=== PATIENT | female | born 1945 | race Caucasian/White ===

== ENCOUNTER 2018-03-07 06:25 | Inpatient (IN) | payer OTHER ==
[~2018-03-07] VITALS: Ht 147.3 cm; Wt 78.9 kg
[2018-03-07 06:25] VITALS: BP 103/57
[~2018-03-07 06:25] MED LIST: ACET-787 PO; ASPI81CT89 PO; DULO60EC PO; LEVO0.124 PO; LINA5TAB PO; METO25TE2 PO; PRAV80TA PO; VALS80TA2 PO
--- NOTE | 2018-03-07 06:25 | NUR ---
PT AMBULATED TO ER BED 03
--- NOTE | 2018-03-07 06:36 | NUR ---
PT BIBA FOR C/O LEFT HIP PAIN X THIS MORNING. PT STATES IT AWOKE HER OUT OF HER SLEEP. PT REPORTS HX OF MULTIPLE HIP AND BACK SURGERIES. NO OBVIOUS DEFORMITY OR TRAUMA NOTED TO LEFT HIP OR LEG. PT IS UNABLE TO MOVE LEFT LEG. CMS INTACT. PT PLACED INTO BED, PENDING MD VILLASENOR.
--- NOTE | 2018-03-07 07:22 | NUR ---
REPORT TO AUTUMN CROWDER FOR TRANSFER OF CARE.
[2018-03-07] MEDS ORDERED: NACL 0.9% 1,000 ML IV SCH (07:36)
[2018-03-07] MEDS ORDERED: NACL 0.9% 1,000 ML IV ONE (07:36)
[2018-03-07] MEDS ORDERED: KETOROLAC 30 MG/ML VIAL IVP ONE (07:40)
[2018-03-07] MEDS ORDERED: ONDANSETRON 4 MG/2 ML VIAL IVP ONE (07:40)
[2018-03-07] MEDS ORDERED: MORPHINE SULFATE 4 MG/ML SYR IVP ONE (07:40)
--- NOTE | 2018-03-07 07:45 | NUR ---
PT TAKEN OFF THE UNIT VIA GURNEY FOR CT OF THE ABDOMEN
[2018-03-07 08:17] LABS: BASOPHILS # (AUTO) 0.1 K/uL (0.00-0.22); BASOPHILS % (AUTO) 1.1 % (0.0-2.0); EOSINOPHILS # (AUTO) 0.5 K/uL (0-0.4); EOSINOPHILS % (AUTO) 4.9 % (0.0-4.0); HEMATOCRIT 36.5 % (36-48); HEMOGLOBIN 11.5 g/dL (12.0-16.0); LYMPHOCYTES # (AUTO) 2.1 K/uL (2.5-16.5); LYMPHOCYTES % (AUTO) 21.6 % (20.5-51.1); MEAN CORPUSCULAR HEMOGLOBIN 26 pg (27-31); MEAN CORPUSCULAR HGB CONC 32 g/dL (33-37); MEAN CORPUSCULAR VOLUME 80.7 fL (80-94); MONOCYTES # (AUTO) 0.4 K/uL (0.8-1.0); MONOCYTES % (AUTO) 4.4 % (1.7-9.3); NEUTROPHILS # (AUTO) 6.6 K/uL (1.8-7.7); PLATELET COUNT (AUTO) 313 K/uL (140-450); RED BLOOD CELL COUNT(AUTO) 4.52 MIL/uL (4.20-5.40); RED CELL DISTRIBUTION WIDTH 18.2 % (11.6-13.7); WHITE BLOOD COUNT (AUTO) 9.8 K/uL (4.8-10.8)
[2018-03-07 08:28] LABS: ANION GAP 10.3 (8-16); CARBON DIOXIDE 30.7 mmol/L (21-32); CHLORIDE 106 mmol/L (98-107); CREATININE 1.1 mg/dL (0.6-1.3); GLUCOSE 114 mg/dL (74-106); PROTHROMBIN TIME 10.1 secs (10.8-13.4); SODIUM SERUM 143 mmol/L (136-145); UREA NITROGEN, BLOOD 14 mg/dL (7-18)
[2018-03-07 08:29] LABS: GFR ARICAN-AMERICAN 63 mL/min (>90)
[2018-03-07 08:30] LABS: ACETONE, SERUM NEGATIVE (NEGATIVE)
[2018-03-07 08:36] LABS: ALBUMIN 3.1 g/dL (3.4-5.0); AMYLASE 38 U/L (25-115); ASPARTATE AMINOTRANSFERASE 18 U/L (15-37); LIPASE 110 U/L (73-393); MAGNESIUM 2.2 mg/dL (1.8-2.4); TOTAL BILIRUBIN 0.3 mg/dL (0.0-1.0)
[2018-03-07 08:50] LABS: URIC ACID 7.2 mg/dL (2.6-7.2)
--- NOTE | 2018-03-07 09:35 | NUR ---
aao pt "feels a little better" post medication
[2018-03-07] MEDS ORDERED: ACETAMINOPHEN 325 MG TAB PO PRN (10:40)
[2018-03-07] MEDS ORDERED: ONDANSETRON 4 MG/2 ML VIAL IVP PRN (10:40)
--- NOTE | 2018-03-07 10:55 | NUR ---
admitting resident evaluating aao pt with daughter at bedside
--- NOTE | 2018-03-07 10:59 | NUR ---
daughter by bedside and states she will be bringing the rest of home medications
[2018-03-07 11:37] LABS: CHOL/HDL RATIO 4.6 (1-4.5); FREE T4 (FREE THYROXINE) 1.36 ng/dL (0.76-1.46); MAGNESIUM 2.2 mg/dL (1.8-2.4); PHOSPHORUS 3.2 mg/dL (2.5-4.9); THYROID STIMULATING HORMONE 0.07 uIU/mL (0.34-3.74)
--- NOTE | 2018-03-07 11:55 | NUR ---
Patient will be admitted to care of Dr Saldivar. Admited to tele. Will go to room 107a. Belongings list completed. Report to AUTUMN Jones.
[2018-03-07] MEDS ORDERED: DEXTROSE 50% 50 ML SYR IVP PRN (12:00)
--- NOTE | 2018-03-07 12:05 | NUR ---
PT BROUGHT UP FROM ER IN [facility], PT AWAKE ALERT, REPORT RECEIVED FROM LAKESHA RN, RESP EVEN UNLABORED, PT STATES SHE CAN'T AMBULATE D/T PAIN, LEFT LEG PAIN RADIATES FROM LEFT LWER BACK TO HIP TO LEFT LWER LEG, DECREASED MOVEMENT DUE TO PAIN, DECREASED SENSATION SECONDARY TO NEUROPATHY PER PT, GOOD PEDAL PULSE, PT ORIENTED TO ROOM AND FLOOR, PLAN OF CARE REVIEWED, PT C/O 02/05 PAIN WILL MEDICATE PER ORDER.
[2018-03-07 12:08] VITALS: BP 108/55
[2018-03-07 12:29] LABS: APPEARANCE,URINE CLEAR (CLEAR); BILIRUBIN,URINE NEGATIVE (NEGATIVE); BLOOD, URINE NEGATIVE (NEGATIVE); COLOR,URINE YELLOW (YELLOW); LEUKOCYTE ESTERASE ,URINE NEGATIVE (NEGATIVE); NITRITE, URINE NEGATIVE (NEGATIVE); UGLUCOSE NEGATIVE (NEGATIVE)
[2018-03-07 12:35] LABS: BARBITURATE, URINE POS. ng/ml (NEG <=200); BENZODIAZEPINE, URINE NEG. ng/mL (NEG <=200); CANNABINOID, URINE NEG. ng/mL (NEG <=50); COCAINE, URINE NEG. ng/mL (NEG <=300); OPIATE, URINE NEG. ng/mL (NEG <=2000); PHENCYCLIDINE SCREEN,URINE NEG. ng/mL (NEG <=25)
[2018-03-07] MEDS: NACL 0.9% 1,000 ML IV SCH (12:51)
[2018-03-07] MEDS: HYDROcodone/APAP 7.5/325 MG 1 TAB PO PRN ×2 (13:06→20:53)
--- NOTE | 2018-03-07 14:45 | NUR ---
PT STARTED HYPERVENTILATING AND MOANING AND SHAKING C/O PAIN DURING ULTRASOUND OF LEFT LE, PT RESPONDS AND STATES SHE IS IN PAIN, VITALS WNL, BS WNL, DR BREWSTER AT BEDSIDE, RT AT BEDSIDE FOR EKG. WILL MEDICATE PER ORDER.
[2018-03-07] MEDS ORDERED: DEXAMETHASONE 10 MG/ML VIAL IVP SCH (15:00)
[2018-03-07] MEDS ORDERED: METHOCARBAMOL 500 MG TAB PO SCH (15:00)
[2018-03-07] MEDS ORDERED: LORazepam 2 MG/ML VIAL IM/IVP SCH (15:00)
--- NOTE | 2018-03-07 15:00 | NUR ---
PT NOW SLEEPING, AROUSES EASILY, US AT BEDSIDE.
[2018-03-07 16:00] VITALS: BP 118/70
--- NOTE | 2018-03-07 16:05 | NUR ---
X RAY AT BEDSIDE
[2018-03-07] MEDS: BLOOD GLUCOSE MONITORING 1 DEV DEV FS SCH ×2 (17:07→20:52)
--- NOTE | 2018-03-07 17:15 | NUR ---
PT LYING IN BED RESTING QUIETLY, DENIES PAIN, DENIES DISCOMFORT, CARRILLO IN PLACE, DRAINING WELL, IV AT LEFT UPPER CHEST WALL INFUSING WELL, SITE WNL, CALL NAQVI WITHIN REACH, SIDE RAILS UP WILL CONTINUE TO MONTIOR
--- NOTE | 2018-03-07 17:17 | NUR ---
DAUGHTER AT BEDSIDE
--- NOTE | 2018-03-07 19:19 | NUR ---
REPORT GIVEN TO LEAD BLENDER NURSE, PT IN STABLE CONDITION.
--- NOTE | 2018-03-07 19:19 | NUR ---
RECEIVED REPORT FROM SAHRA LEYVA DAYSHIFT NURSE AT BEDSIDE FOR CONTINUITY OF CARE, PT IN STABLE CONDITION.
[2018-03-07 20:00] VITALS: BP 122/68
[2018-03-07] MEDS: DOCUSATE SODIUM 100 MG GELCAP PO SCH (20:53)
--- NOTE | 2018-03-07 21:00 | NUR ---
PT IN LOW BED WITH SIDE RAILS UP X2 IV SITE IN LEFT SHOULDER FLUSHED PATENT. CARRILLO CATHETER INTACT AND DRAINING LIGHT LUIS URINE. V/S FOLLOWS T 97.6 P 84 R 20 B/P 122/68 02 92% WITH R/A. F/S 221. 4 UNITS OF HUMALOG COVERAGE PROVIDED. PT C/O 6/10 PAIN IN LEFT LEG AND HIP, GIVEN NORCO PO/PRN. WILL MONITOR EFFECT.
[2018-03-07] MEDS: INSULIN LISPRO SLIDING SCALE 100 UNITS/ML VIAL SUBQ PRN (21:38)
[2018-03-08] VITALS: BP 122/71
--- NOTE | 2018-03-08 00:30 | NUR ---
PT ASLEEP V/S FOLLOWS T 98.8 P 95 R 18 B/P 122/71 02 91%. NO S/S OF PAIN OR DISTRESS NOTED. BED LOW AL FALLS PRECAUTIONS IN PLACE AND CALL NAQVI IN REACH.
[2018-03-08] MEDS: NACL 0.9% 1,000 ML IV SCH (00:57)
[2018-03-08] MEDS: HYDROcodone/APAP 7.5/325 MG 1 TAB PO PRN (01:15)
--- NOTE | 2018-03-08 01:19 | NUR ---
PT AWAKE AND ASKING FOR PAIN MEDICATION FOR H/A. PT STATES H/A IS 6/10. PT GIVEN NORCOPO/PRN. PT EXPRESSED CONCERN THAT THIS MEDICATION WILL NOT BE ENOUGH TO RELIEVE HER HEADACHE. PT STATES "I KNOW MY BODY". TO WHICH RN REPIED THAT WE NEED TO TRY THE MEDICATION THAT THE DOCTOR ORDERED FIRST AND ASSES IF THE MEDICATIO IS EFFECTIVE, IF NOT RN REASSURED PT THAT THE DOCTOR CAN BE CONTACTED FOR STRONGER MEDICATION IF THE MEDICATION ORDERED IS NOT EFFECTIVE. PT WILLING TO TAKE NORCO FOR HER PAIN, WILL CONTINUE TO MONITOR PT FOR PAIN RELIEF.
[2018-03-08] MEDS ORDERED: KETOROLAC 30 MG/ML VIAL ONE (02:47)
--- NOTE | 2018-03-08 02:55 | NUR ---
PT C/O THAT PAIN MEDICATION, NORCO WAS NOT EFFECTIVE IN RELIEVING HER HEAD ACHE, RESIDENT MD HOFF NOTIFIED AND ORDERED X1 TORADOL 30 MG IVP. MEDICATION ADMINISTERED AND AWAITING EFFECT.
[2018-03-08] MEDS ORDERED: KETOROLAC 30 MG/ML VIAL IVP SCH (03:00)
[2018-03-08 04:00] VITALS: BP 104/53
--- NOTE | 2018-03-08 04:00 | NUR ---
PT STATES THAT TORADOL IVP HAS HELPED HER HEADACHE. V/S FOLLOWS T 98 0 P 68 R 18 B/P 104/53 02 IS 03%.
[2018-03-08] MEDS ORDERED: ALBUTEROL SULFATE/IPRATROPIU 3 ML SOL IH PRN (06:05)
[2018-03-08] MEDS: BLOOD GLUCOSE MONITORING 1 DEV DEV FS SCH ×4 (06:17→21:23)
[2018-03-08] MEDS ORDERED: KETOROLAC 15 MG/ML VIAL IVP PRN (06:25)
[2018-03-08] MEDS: INSULIN LISPRO SLIDING SCALE 100 UNITS/ML VIAL SUBQ PRN ×2 (06:29→21:26)
[2018-03-08 06:34] LABS: BASOPHILS % (AUTO) 0.2 % (0.0-2.0); EOSINOPHILS % (AUTO) 0.1 % (0.0-4.0); HEMATOCRIT 32.2 % (36-48); HEMOGLOBIN 10.1 g/dL (12.0-16.0); LYMPHOCYTES # (AUTO) 1.7 K/uL (2.5-16.5); LYMPHOCYTES % (AUTO) 15.2 % (20.5-51.1); MEAN CORPUSCULAR HEMOGLOBIN 26 pg (27-31); MEAN CORPUSCULAR HGB CONC 31 g/dL (33-37); MEAN CORPUSCULAR VOLUME 81.4 fL (80-94); MONOCYTES # (AUTO) 0.2 K/uL (0.8-1.0); MONOCYTES % (AUTO) 1.9 % (1.7-9.3); NEUTROPHILS % (AUTO) 82.6 % (42.2-75.2); PLATELET COUNT (AUTO) 298 K/uL (140-450); RED BLOOD CELL COUNT(AUTO) 3.96 MIL/uL (4.20-5.40); RED CELL DISTRIBUTION WIDTH 18.3 % (11.6-13.7)
[2018-03-08] MEDS ORDERED: ALBUTEROL SULFATE/IPRATROPIU 3 ML SOL IH SCH (07:00)
[2018-03-08 07:10] LABS: ANION GAP 9.5 (8-16); CARBON DIOXIDE 28.4 mmol/L (21-32); POTASSIUM 4.9 mmol/L (3.5-5.1)
[2018-03-08 07:15] LABS: MAGNESIUM 2.1 mg/dL (1.8-2.4); PHOSPHORUS 3.5 mg/dL (2.5-4.9)
--- NOTE | 2018-03-08 07:15 | NUR ---
GAVE REPORT TO SCHUYLER COLE RN DAYSHIFT NURSE AT BEDSIDE FOR CONTINUITY OF CARE, PT IN STABLE CONDITION.
--- NOTE | 2018-03-08 07:40 | NUR ---
RECEIVED PATIENT FROM FISH CUTTING MACHINE OPERATOR RN BY BEDSIDE. PATIENT IS ALERT AND ORIENTED. PATIENT HAS EVEN, UNLABORED RESPIRATION ON ROOM AIR. SKIN IS DRY AND WARM. IV ON L CHEST IS PATENT AND INTACT. PATIENT STATED THAT HER PAIN LEVEL IS 6 (ON 0 - 10 SCALE) BUT IT IS TOLERABLE AND DOES NOT WANT ANY PAIN MEDICATION AT THIS TIME. CARRILLO WAS INSERTED ON 03/07.
[2018-03-08 08:20] VITALS: BP 95/43
[2018-03-08] MEDS ORDERED: [UNRECOGNIZED DRUG - CODE] PO (08:33)
[2018-03-08] MEDS ORDERED: FURO20TA8 PO (08:33)
[2018-03-08] MEDS ORDERED: GLIM2TAB PO (08:33)
[2018-03-08] MEDS ORDERED: LYR75 PO (08:33)
[2018-03-08] MEDS ORDERED: ESCI10TA PO (08:33)
[2018-03-08] MEDS ORDERED: RANI15SY PO (08:33)
[2018-03-08] MEDS ORDERED: LOSA50TA27 PO (08:33)
[2018-03-08] MEDS ORDERED: PANT40EC PO (08:33)
[2018-03-08] MEDS ORDERED: ECOTRIN 81 MG TABEC PO SCH (08:34)
[2018-03-08] MEDS ORDERED: NITROGLYCERIN 0.4 MG TAB SL SCH (08:35)
[2018-03-08] MEDS ORDERED: APAP/BUTAL/CAFF 325/50/40 MG 1 TAB PO PRN (08:35)
--- NOTE | 2018-03-08 08:45 | NUR ---
PATIENT COMPLAIN OF CHEST PAIN. PRESSURE-LIKE, NON-RADIATING PAIN. DR. BREWSTER WAS NOTIFIED AND ORDER WAS RECEIVED. WILL MEDICATE THE PATIENT PER ORDER.
[2018-03-08] MEDS: DOCUSATE SODIUM 100 MG GELCAP PO SCH ×2 (08:53→21:23)
[2018-03-08] MEDS: ASPIRIN 81 MG TAB.CHEW PO SCH (08:53)
[2018-03-08] MEDS ORDERED: PRAVASTATIN SODIUM PO SCH (09:00)
[2018-03-08] MEDS: FUROSEMIDE 20 MG TAB PO SCH (09:00)
[2018-03-08] MEDS ORDERED: METOPROLOL SUCCINATE 50 MG TABER PO SCH (09:00)
[2018-03-08] MEDS ORDERED: NON-FORMULARY ITEM (Linagliptin (Tradjenta) 5 MG) PO SCH (09:00)
[2018-03-08] MEDS: LOSARTAN 50 MG TAB PO SCH (09:00)
[2018-03-08] MEDS: PREGABALIN 25 MG CAP PO SCH ×3 (09:00→17:06)
[2018-03-08] MEDS: ESCITALOPRAM 20 MG TAB PO SCH (09:01)
[2018-03-08] MEDS: FAMOTIDINE 20 MG TAB PO SCH (09:01)
[2018-03-08] MEDS: GLIMEPIRIDE 2 MG TAB PO SCH (09:02)
--- NOTE | 2018-03-08 09:30 | NUR ---
PATIENT IS AWAKE AND STILL HAVING CHEST PAIN. RESPIRATION IS EVEN AND UNLABORED ON 2 L/MIN VIA NC. MEDS GIVEN PER ORDER. CALL LIGHT WITHIN REACH.
--- NOTE | 2018-03-08 09:31 | NUR ---
PATIENT HAS BEEN SCREENED AND CATEGORIZED MODERATE NUTRITION RISK. PATIENT WILL BE SEEN WITHIN 3-5 DAYS OF ADMISSION. 03/10/18-03/12/[address]
[2018-03-08 12:00] VITALS: BP 105/50
[2018-03-08] MEDS ORDERED: TRADJENTA 5 MG PO SCH (12:00)
--- NOTE | 2018-03-08 12:10 | NUR ---
PATIENT IS LYING ON THE BED WITHOUT ANY SIGNS OF DISTRESS. PATIENT STATES THAT SHE IS STILL HAVING PAIN BUT IS TOLERABLE. WILL CONTINUE TO MONITOR HER PAIN LEVEL AND MEDICATE IF NEEDED
--- NOTE | 2018-03-08 13:50 | NUR ---
PATIENT IS SLEEPING ON THE BED. BED AT THE LOWEST POSITION WITH CALL LIGHT WITHIN REACH
--- NOTE | 2018-03-08 15:25 | NUR ---
PATIENT AWAKE, ALERT. RESPIRATION EVEN, UNLABOR ON 2L NC. NO DISTRESS NOTED AT THIS TIME. FAMILY AT BEDSIDE. CALL LIGHT WITHIN REACH
[2018-03-08 16:00] VITALS: BP 103/53
--- NOTE | 2018-03-08 18:15 | NUR ---
PATIENT WAS AWAKE, ALERT. RESPIRATION EVEN, UNLABOR ON ROOM AIR. NO DISTRESS NOTED AT THIS TIME. IV PATENT AND INTACT
--- NOTE | 2018-03-08 19:33 | NUR ---
PATIENT ENDORSED TO SENIOR STORAGE ENGINEER RN BY BEDSIDE. BED AT THE LOWEST POSITION AND CALL LIGHT WITHIN REACH.
--- NOTE | 2018-03-08 19:34 | NUR ---
RECEIVED REPORT FROM DAY SHIFT NURSE MIKE-RN AT BEDSIDE. PT RESTING IN BED, AOX4, ON OXYGEN 2L/NC AND IV SITE ON LEFT CHEST #22G. LEFT SIDED WEAKNESS ON BEDREST. CARRILLO CATHETER IN PLACE- INSERTED ON 03/07/2018. DISCUSSED PLAN OF CARE AND PT VERBALIZED UNDERSTANDING. NO S/S OF RESPIRATORY DISTRESS OR DISCOMFORT NOTED AT THIS TIME. BED IN LOWEST POSITION, BED BREAKS ON, BOTH SIDE RAILS UP, BED ALARM ON AND FALL PRECAUTIONS IN PLACE. CALL LIGHT AND BED SIDE TABLE ARE WITHIN REACH. WILL CONTINUE TO MONITOR.
[2018-03-08 20:00] VITALS: BP 136/72
--- NOTE | 2018-03-08 20:00 | NUR ---
VITAL SIGNS TAKEN AND TOLERATED WELL. BLOOD GLUCOSE 159- WILL ADMINISTER INSULIN COVERAGE. NO S/S OF RESPIRATORY DISTRESS OR DISCOMFORT NOTED AT THIS TIME. WILL CONTINUE TO MONITOR.
[2018-03-08] MEDS ORDERED: SIMVASTATIN 40 MG TAB PO SCH (21:00)
--- NOTE | 2018-03-08 21:26 | NUR ---
SCHEDULED MEDICATION GIVEN AND INSULIN COVERAGE GIVEN. PT TOLERATED WELL. NO S/S OF RESPIRATORY DISTRESS OR DISCOMFORT NOTED AT THIS TIME. WILL CONTINUE TO MONITOR.
--- NOTE | 2018-03-08 23:00 | NUR ---
PT SLEEPING AT THIS TIME. NO S/S OF RESPIRATORY DISTRESS OR DISCOMFORT NOTED AT THIS TIME. WILL CONTINUE TO MONITOR.
[2018-03-09] VITALS: BP 130/64
--- NOTE | 2018-03-09 | NUR ---
VITAL SIGNS TAKEN AND TOLERATED WELL. NO S/S OF RESPIRATORY DISTRESS OR DISCOMFORT NOTED AT THIS TIME. WILL CONTINUE TO MONITOR.
--- NOTE | 2018-03-09 02:00 | NUR ---
PT CONTINUES TO SLEEP. NO S/S OF RESPIRATORY DISTRESS OR DISCOMFORT NOTED AT THIS TIME. WILL CONTINUE TO MONITOR.
[2018-03-09 04:00] VITALS: BP 124/65
--- NOTE | 2018-03-09 04:00 | NUR ---
VITAL SIGNS TAKEN AND TOLERATED WELL. NO S/S OF RESPIRATORY DISTRESS OR DISCOMFORT NOTED AT THIS TIME. WILL CONTINUE TO MONITOR.
[2018-03-09] MEDS: BLOOD GLUCOSE MONITORING 1 DEV DEV FS SCH ×2 (06:01→12:22)
--- NOTE | 2018-03-09 06:01 | NUR ---
BLOOD GLUCOSE 112- NO INSULIN COVERAGE GIVEN. SCHEDULED MEDICATION GIVEN AND TOLERATED WELL. NO S/S OF RESPIRATORY DISTRESS OR DISCOMFORT NOTED AT THIS TIME. WILL CONTINUE TO MONITOR.
[2018-03-09] MEDS ORDERED: PANTOPRAZOLE 40 MG TABEC PO SCH (06:30)
[2018-03-09 07:32] LABS: BASOPHILS # (AUTO) 0.1 K/uL (0.00-0.22); BASOPHILS % (AUTO) 1.2 % (0.0-2.0); EOSINOPHILS # (AUTO) 0.6 K/uL (0-0.4); EOSINOPHILS % (AUTO) 5.5 % (0.0-4.0); HEMATOCRIT 31.2 % (36-48); HEMOGLOBIN 9.9 g/dL (12.0-16.0); LYMPHOCYTES # (AUTO) 3.9 K/uL (2.5-16.5); LYMPHOCYTES % (AUTO) 38.8 % (20.5-51.1); MEAN CORPUSCULAR HEMOGLOBIN 26 pg (27-31); MEAN CORPUSCULAR HGB CONC 32 g/dL (33-37); MEAN CORPUSCULAR VOLUME 81.7 fL (80-94); MONOCYTES # (AUTO) 0.4 K/uL (0.8-1.0); NEUTROPHILS # (AUTO) 5.1 K/uL (1.8-7.7); NEUTROPHILS % (AUTO) 50.5 % (42.2-75.2); PLATELET COUNT (AUTO) 134 K/uL (140-450); RED BLOOD CELL COUNT(AUTO) 3.81 MIL/uL (4.20-5.40); RED CELL DISTRIBUTION WIDTH 18.3 % (11.6-13.7)
--- NOTE | 2018-03-09 07:34 | NUR ---
ENDORSED PT CARE TO DAY SHIFT NURSE SARAH-RN FOR CONTINUITY OF CARE.
--- NOTE | 2018-03-09 07:35 | NUR ---
REPORT RECEIVED FROM CREMATORIUM OPERATOR NURSE, PT AWAKE ALERT, SPEAKS CLEARLY, SMILING IN NAD, RESP EVEN UNLABORED, SKIN WARM DRY COLOR WNL, PT DENIES PAIN OR DISCOMFORT, PT DENIES ANY IMMEDIATE NEEDS, PLAN OF CARE REVIEWED, ALL SAFETY MEASURES IN PLACE, WILL CONTINUE TO MONITOR. DR HULL AND TEAM AT BEDSIDE.
[2018-03-09 07:54] LABS: ANION GAP 10.9 (8-16); CREATININE 1.2 mg/dL (0.6-1.3); POTASSIUM 4.4 mmol/L (3.5-5.1)
[2018-03-09 07:56] LABS: PHOSPHORUS 4.1 mg/dL (2.5-4.9)
[2018-03-09 08:00] VITALS: BP 126/64
[2018-03-09 08:00] LABS: CARBON DIOXIDE 25.6 mmol/L (21-32)
[2018-03-09] MEDS ORDERED: TRADJENTA 5 MG PO SCH (09:00)
[2018-03-09] MEDS: FAMOTIDINE 20 MG TAB PO SCH (09:05)
[2018-03-09] MEDS: FUROSEMIDE 20 MG TAB PO SCH (09:05)
[2018-03-09] MEDS: DOCUSATE SODIUM 100 MG GELCAP PO SCH (09:05)
[2018-03-09] MEDS: GLIMEPIRIDE 2 MG TAB PO SCH (09:05)
[2018-03-09] MEDS: ASPIRIN 81 MG TAB.CHEW PO SCH (09:05)
[2018-03-09] MEDS: ESCITALOPRAM 20 MG TAB PO SCH (09:06)
[2018-03-09] MEDS: LOSARTAN 50 MG TAB PO SCH (09:06)
[2018-03-09] MEDS: PREGABALIN 25 MG CAP PO SCH ×2 (09:14→13:16)
--- NOTE | 2018-03-09 09:35 | NUR ---
AM MEDS GIVEN, PT JAGUAR WELL, PT ASSISTED OUT OF BED, AMBULATES WITH HER OWN WALKER WITH MINIMAL ASSIST WITH STEADY SLOW GAIT, DENIES DIZZINESS, OR LIGHT HEADED NESS, DENIES PAIN, PT JAGUAR WELL.
[2018-03-09 12:00] VITALS: BP 122/71
--- NOTE | 2018-03-09 12:23 | NUR ---
BEDSIDE GLUCOSE 73, NO INSULIN NEEDED PER SLIDING SCALE, PT SITTING UP FOR LUNCH NOW.
--- NOTE | 2018-03-09 13:40 | NUR ---
DC INSTRUCTION GIVEN AND EXPLAINED TO PT, PT VERBALIZED FULL UNDERSTANDING, PT UP OUT OF BED TO BATHROOM WITH MINIMAL ASSIST, WALKS WITH HER WALKER TO BATHROOM , VOIDED WITHOUT PROBLEM, DC HOME NOW WITH DAUGHTER, IV DC'D, CATH TIP INTACT, BLEEDING CONTROLLED, ESCORTED TO FRONT LOBBY BY FACILITIES PAINTER NOW.
--- NOTE | 2018-03-09 14:00 | NUR ---
PT'S HOME MEDICATION TRAJENTA IN PHARMACY, PT DC'D HOME WITHOUT MED, CALLED NUMBER ON FILE, DAUGHTER WILL GROUP ART SUPERVISOR MEDICATION TOMORROW AM, PHARMACY MADE AWARE, PT'S DAUGHTER TO BRING PT'S ID TO GROUP ART SUPERVISOR MEDICATION, PT'S DAUGHTER AWARE.
== END 2018-03-09 13:40 | disposition home or self-care (01) | DRG 552 ==
LOC: MED 06:25 → MTU 10:39
PROVIDERS: ADMIT General Practice; ATTEND General Practice
DX: M54.30 Sciatica, unspecified side (principal); D68.59 Other primary thrombophilia; E44.0 Moderate protein-calorie malnutrition; M94.0 Chondrocostal junction syndrome [Tietze]; E03.9 Hypothyroidism, unspecified; I10 Essential (primary) hypertension; M19.90 Unspecified osteoarthritis, unspecified site; E78.5 Hyperlipidemia, unspecified; J45.909 Unspecified asthma, uncomplicated; E66.9 Obesity, unspecified; E86.0 Dehydration; F32.9 Major depressive disorder, single episode, unspecified; E11.65 Type 2 diabetes mellitus with hyperglycemia; Z68.36 Body mass index [BMI] 36.0-36.9, adult
CPT/HCPCS: 36415; 36600; 51702; 71045; 72110; 72170; 80048; 80053; 80305; 81003; 82009; 82150; 82803; 82948; 83036; 83605; 83690; 83735; 83880; 84100; 84439; 84443; 84484; 84550; 85025; 85610; 85730; 87040; 87081; 87086; 93005; 93925; 93970; 96361; 96374; 96375; 97116; 99285; J1100; J1644; J1815; J1885; J2060; J2270; J2405; J7030; Q0092

== ENCOUNTER 2021-01-09 21:25 | Emergency (ER) | payer OTHER ==
[~2021-01-09] VITALS: Ht 154.9 cm; Wt 113.4 kg
[~2021-01-09 21:25] MED LIST changes: -ACET-787 PO; +ASPI-1822 PO; -ASPI81CT89 PO; +CARV6.25 PO; -DULO60EC PO; +FURO20TA8 PO; +GLIM2TAB PO; +LINA290C PO; +LOSA100T1 PO; -METO25TE2 PO; +PAM25 PO; +PANT40EC PO; +POTA10TE30 PO; -PRAV80TA PO; +SERT25TA PO; +TIZA4CAP PO; -VALS80TA2 PO
--- NOTE | 2021-01-09 21:30 | NUR ---
PT JAKOB ALS. TAKEN TO BED 12
[2021-01-09 21:35] VITALS: BP 111/76
--- NOTE | 2021-01-09 21:40 | NUR ---
PT BIBA WITH C/C DRUG OVERDOSE. PER [facility], PT WAS FOUND UNCONSCIOUS BY FAMILY AT HOME IN BED. BELIEVE TO HAVE OVERDOSED ON NORCO, PER FAMILY SHE HAS HX OF CHRONIC BACK PAIN. [facility] REPORTS PT RECIEVED 9 MG OF NARCAN BY FAMILY AT HOME. REPORTS [facility] 13 ON SITE. PT CURRENT GCS 14, UNAWARE OF LOCATION. SPONTANEOUSLY RESPONSIVE AND COOPERATIVE. RESPIRATIONS EVEN AND UNLABORED. PT DENIES PAIN AT THIS TIME. PERRLA. PT REPORTS "IM TIRED." CONNECTED TO PNEUMATIC HOIST OPERATOR. MED HX: DM, CHRONIC BACK PAIN, HTN, ARRHYTHMIAS, DEPRESSION, BACK SURGERIES ALLERGIES: NKA
--- NOTE | 2021-01-09 22:03 | NUR ---
LAB AT BEDSIDE.
--- NOTE | 2021-01-09 22:21 | NUR ---
DAUGHTER SHARON AT BEDSIDE. CONFIRMED WITH PROOF OF COVID VACCINATION.
--- NOTE | 2021-01-09 22:25 | NUR ---
PER PTS DAUGHTER SHARON AT BEDSIDE, PT WAS FOUND LYING IN BED SLEEPING AROUND 1830. PER SHARON, ABOUT AN HOUR LATER SHE NOTCIED PT WAS "FOAMING AT MOUTH." DAUGHTER WAS ABLE TO WAKE PT UP AND TAKE HER TO RESTROOM, HOWEVER A LITTLE WHILE LATER PT WAS UNRESPONSIVE, LYING IN BED WITH EYES OPEN. DAUGHTER REPORTS ADMINISTERED NARCAN X 2. PER DAUGHTER, PT HAS PILLS ON BEDSIDE TABLE (UNKNOWN) AND PT REPORTS TAKING UNKNOWN AMOUNT. DAUGHTER STATES SHE WILL CALL HER TO IDENTFIY PILL BOTTLE AT HOME. DAUGHTER ALSO REPORTS THIS IS NOT THE FIRST TIME PT HAS OVERDOSED ON MEDICATION, BUT DENIES PT INTENT TO HARM SELF. PT CURRENTLY DENIES INTENT TO HARM SELF.
[2021-01-09 22:32] LABS: BASOPHILS # (AUTO) 0.1 K/uL (0.00-0.22); BASOPHILS % (AUTO) 0.7 % (0.0-2.0); EOSINOPHILS # (AUTO) 0.6 K/uL (0-0.4); EOSINOPHILS % (AUTO) 5.7 % (0.0-4.0); HEMATOCRIT 33.7 % (36-48); HEMOGLOBIN 10.4 g/dL (12.0-16.0); LYMPHOCYTES # (AUTO) 2.6 K/uL (2.5-16.5); LYMPHOCYTES % (AUTO) 23.7 % (20.5-51.1); MEAN CORPUSCULAR HEMOGLOBIN 24 pg (27-31); MEAN CORPUSCULAR HGB CONC 31 g/dL (33-37); MEAN CORPUSCULAR VOLUME 77.4 fL (80-94); MONOCYTES # (AUTO) 0.5 K/uL (0.8-1.0); MONOCYTES % (AUTO) 4.8 % (1.7-9.3); NEUTROPHILS # (AUTO) 7.2 K/uL (1.8-7.7); NEUTROPHILS % (AUTO) 65.1 % (42.2-75.2); PLATELET COUNT (AUTO) 434 K/uL (140-450); RED BLOOD CELL COUNT(AUTO) 4.36 MIL/uL (4.20-5.40); RED CELL DISTRIBUTION WIDTH 20.6 % (11.6-13.7); WHITE BLOOD COUNT (AUTO) 11.1 K/uL (4.8-10.8)
[2021-01-09 22:57] LABS: ALBUMIN 3.3 g/dL (3.4-5.0); ANION GAP 12.9 (8-16); ASPARTATE AMINOTRANSFERASE 12 U/L (15-37); CARBON DIOXIDE 26.4 mmol/L (21-32); CHLORIDE 101 mmol/L (98-107); CREATININE 1.4 mg/dL (0.6-1.3); GLUCOSE 132 mg/dL (74-106); MAGNESIUM 2.1 mg/dL (1.8-2.4); PHOSPHORUS 4.2 mg/dL (2.5-4.9); POTASSIUM 4.3 mmol/L (3.5-5.1); SODIUM SERUM 136 mmol/L (136-145); THYROID STIMULATING HORMONE 2.44 uIU/mL (0.34-3.74); TOTAL BILIRUBIN 0.2 mg/dL (0.0-1.0); UREA NITROGEN, BLOOD 19 mg/dL (7-18)
[2021-01-09 23:06] LABS: ACETAMINOPHEN < 0.5 ug/ml (10-30); SALICYLATE < 2.8 mg/dL (2.8-20.0)
--- NOTE | 2021-01-09 23:18 | NUR ---
PT RETURN FROM CT
--- NOTE | 2021-01-09 23:35 | NUR ---
# 16 FR Urinary catheter inserted utilizing sterile technique. Immediate return of 250 ml CLEAR, YELLOW urine noted. Urine sample collected and sent to lab. Pt tolerated procedure WELL.
--- NOTE | 2021-01-09 23:40 | NUR ---
PT DAUGHTER LORNA AT BEDSIDE. CONFIRMED COVID VACCINATION.
--- NOTE | 2021-01-10 00:41 | NUR ---
URINE WALKED TO LAB AND HAND GIVEN TO CHILO [place] TECH.
[2021-01-10 00:44] LABS: APPEARANCE,URINE CLEAR (CLEAR); BILIRUBIN,URINE NEGATIVE (NEGATIVE); BLOOD, URINE NEGATIVE (NEGATIVE); COLOR,URINE YELLOW (YELLOW); LEUKOCYTE ESTERASE ,URINE NEGATIVE (NEGATIVE); NITRITE, URINE NEGATIVE (NEGATIVE); UGLUCOSE NEGATIVE (NEGATIVE)
[2021-01-10 00:53] LABS: BARBITURATE, URINE NEGATIVE ng/ml (NEG <=200); BENZODIAZEPINE, URINE NEGATIVE ng/mL (NEG <=200); CANNABINOID, URINE NEGATIVE ng/mL (NEG <=50); COCAINE, URINE NEGATIVE ng/mL (NEG <=300); PHENCYCLIDINE SCREEN,URINE NEGATIVE ng/mL (NEG <=25)
[2021-01-10 00:54] LABS: OPIATE, URINE POSITIVE ng/mL (NEG <=2000)
--- NOTE | 2021-01-10 01:05 | NUR ---
ERMD AT BEDSIDE SPEAKING WITH PT AND PTS DAUGHTER.
--- NOTE | 2021-01-10 01:10 | NUR ---
PT PROVIDED URINAL AT BEDSIDE. NOTED WITH URINE AND BM. DAUGHTER AT BEDSIDE FOR ASSIST.
[2021-01-10 01:40] VITALS: BP 130/73
--- NOTE | 2021-01-10 01:40 | NUR ---
Patient discharged with v/s stable. Written and verbal after care instructions given and explained. Patient verbalized understanding. Wheel Chair Assisted with steady gait. All questions addressed prior to discharge. Advised to follow up with PMD.
== END 2021-01-10 01:40 | disposition home or self-care (01) ==
LOC: MED 21:25
DX: R41.82 Altered mental status, unspecified (principal); J45.909 Unspecified asthma, uncomplicated; E11.9 Type 2 diabetes mellitus without complications; I10 Essential (primary) hypertension; Z79.899 Other long term (current) drug therapy
CPT/HCPCS: 36415; 70450; 80053; 80305; 81003; 83735; 84100; 84443; 84484; 85025; 93005; 99291; G0480; G0482; 99285

== ENCOUNTER 2021-08-06 16:57 | Inpatient (IN) | payer OTHER ==
[~2021-08-06] VITALS: Ht 147.3 cm; Wt 88.0 kg
[2021-08-06 16:57] VITALS: BP 135/29
[~2021-08-06 16:57] MED LIST changes: +POTA10TA70 PO; -POTA10TE30 PO
--- NOTE | 2021-08-06 16:57 | NUR ---
BIBA to bed 10.
[2021-08-06 17:00] VITALS: BP 145/50
--- NOTE | 2021-08-06 17:00 | NUR ---
75 y/o F BIBA for acute onset SOB x 5 minutes prior to arrival. Per EMS, patient on home high flow with SpO2 77%. Pt placed on CPAP by EMS SpO2 94%. Pt noted with diminished lung sounds to upper lobes, LLE +1 pitting edema. Pt speaking in 1-2 worded sentences states sore throat and history of intubation Patient denies fever, chills, nausea, vomiting, diarrhea. Bed locked in lowest position, side rails x 2. 20G left AC by EMS. PMH: DM2, HTN, CVA, COPD, hypothyroidism, Meds: carvedilol, levothyroxine, lasix, losartan, pantoprazole, trajenta, Belcher, Plavix, duloxetine, nortiptline, atorvastatin, tizandine NKDA
--- NOTE | 2021-08-06 17:02 | NUR ---
Dr. Ayala, RT, RN at bedside.
--- NOTE | 2021-08-06 17:14 | NUR ---
PRINT CUTTER AT BEDSIDE
--- NOTE | 2021-08-06 17:27 | NUR ---
Lab at bedside
[2021-08-06 17:32] LABS: BASOPHILS # (AUTO) 0.1 K/uL (0.00-0.22); BASOPHILS % (AUTO) 0.8 % (0.0-2.0); EOSINOPHILS # (AUTO) 0.6 K/uL (0-0.4); EOSINOPHILS % (AUTO) 6.1 % (0.0-4.0); HEMATOCRIT 32.9 % (36-48); HEMOGLOBIN 10.4 g/dL (12.0-16.0); LYMPHOCYTES # (AUTO) 2.5 K/uL (2.5-16.5); LYMPHOCYTES % (AUTO) 23.5 % (20.5-51.1); MEAN CORPUSCULAR HEMOGLOBIN 24 pg (27-31); MEAN CORPUSCULAR HGB CONC 32 g/dL (33-37); MONOCYTES # (AUTO) 0.5 K/uL (0.8-1.0); MONOCYTES % (AUTO) 5.2 % (1.7-9.3); NEUTROPHILS # (AUTO) 6.8 K/uL (1.8-7.7); NEUTROPHILS % (AUTO) 64.4 % (42.2-75.2); PLATELET COUNT (AUTO) 426 K/uL (140-450); RED BLOOD CELL COUNT(AUTO) 4.27 MIL/uL (4.20-5.40); RED CELL DISTRIBUTION WIDTH 20.1 % (11.6-13.7); WHITE BLOOD COUNT (AUTO) 10.5 K/uL (4.8-10.8)
--- NOTE | 2021-08-06 17:50 | NUR ---
Ultrasound at bedside.
[2021-08-06 17:55] LABS: ALBUMIN 3.8 g/dL (3.4-5.0); ANION GAP 11.3 (8-16); ASPARTATE AMINOTRANSFERASE 13 U/L (15-37); CARBON DIOXIDE 27.9 mmol/L (21-32); CHLORIDE 99 mmol/L (98-107); CREATININE 1.5 mg/dL (0.6-1.3); GLUCOSE 120 mg/dL (74-106); POTASSIUM 4.2 mmol/L (3.5-5.1); SODIUM SERUM 134 mmol/L (136-145); TOTAL BILIRUBIN 0.3 mg/dL (0.0-1.0); UREA NITROGEN, BLOOD 18 mg/dL (7-18)
[2021-08-06] MEDS ORDERED: SITA25TA3 PO (18:22)
[2021-08-06] MEDS ORDERED: SEMA1PEN3 SQ (18:22)
[2021-08-06] MEDS ORDERED: INSU100S45 SUBQ (18:22)
[2021-08-06] MEDS ORDERED: ATOR10TA PO ×2 (18:22→19:10)
--- NOTE | 2021-08-06 18:39 | NUR ---
PATIENTS DAUGHTER BEDSIDE, SPEAKING WITH DR. OCAMPO
--- NOTE | 2021-08-06 18:48 | NUR ---
DR. OCAMPO REMOVED PATIENTS BIPAP, PLACED PATIENT ON 2L NC, O2 SATURATION 98%.
--- NOTE | 2021-08-06 18:57 | NUR ---
[place] SWAB COLLECTED AND WALKED TO LAB.
[2021-08-06] MEDS ORDERED: DULO20EC PO (19:10)
[2021-08-06] MEDS ORDERED: CLOP75TA26 PO (19:10)
[2021-08-06] MEDS ORDERED: LYR25 PO (19:10)
[2021-08-06] MEDS ORDERED: BEN10 PO (19:10)
--- NOTE | 2021-08-06 19:25 | NUR ---
Pt report given to AUTUMN MARR. Transfer of care at this time.
--- NOTE | 2021-08-06 19:28 | NUR ---
PT IS AWAKE AND ALERT. DAUGHTER AT BEDSIDE. PT DENIES PAIN AND DISCOMFORT, STATES SHE IS DOING BETTER. PT ASKED FOR WATER AND ICE. FAMILY WOULD LIKE TO BRING FOOD FOR PT. CONFRIMED WITH , PT MAY HAVE FOOD AND FLUIDS. WATER PROVIDED FOR PT. PT REPOSITIONED FOR COMFORT. ALL NEEDS MET AT THIS TIME. PT'S VSS. BED LOCKED IN LOWEST POSITION, SIDE RAILS X2 FOR SAFETY.
--- NOTE | 2021-08-06 19:48 | NUR ---
PT TAKEN TO CT VIA RISABEL.
--- NOTE | 2021-08-06 19:53 | NUR ---
PT'S DAUGHTER DROPPED FOOD FOR PT AT BEDSIDE.
--- NOTE | 2021-08-06 19:56 | NUR ---
PT IS BACK FROM CT.
--- NOTE | 2021-08-06 20:00 | NUR ---
PT POSITIONED TO EAT.
--- NOTE | 2021-08-06 22:00 | NUR ---
PT IS AWAKE AND ALERT. ALL NEEDS MET AT THIS TIME.
--- NOTE | 2021-08-06 23:44 | NUR ---
PT SLEEPING ON 2LNC W/ SPO2 91% WILL CONTINUE TO MONITOR
--- NOTE | 2021-08-07 00:30 | NUR ---
PT ASSISTED TO BED GRULLON. 300CC OF CLEAR YELLOW URINE. LINEN CHANGED, PT REPOSITIONED FOR COMFORT. WARM BLANKET PROVIDED.
--- NOTE | 2021-08-07 01:52 | NUR ---
PT APPEARS TO BE RESTING. EYES ARE CLOSED, OPENS TO TOUCH. EQUAL RISE AND FALL OF CHEST WALL. VSS. ALL NEEDS MET AT THIS TIME. BED LOCKED IN LOWEST POSITION, SIDE RAILSX2 FOR SAFETY.
--- NOTE | 2021-08-07 03:55 | NUR ---
PT STATED SHE NEEDED TO URINATE. PT THEN BEGAN CONVULSING. PT WAS RESPONSIVE TO PAINFUL STIMULI, WITHDREW HAND. ELAINE OVALLES CALLED OVER TO BEDSIDE, WHILE CONVULSING PT BEGAN STATING HELP ME.
--- NOTE | 2021-08-07 03:56 | NUR ---
RAPID RESPONSE CALLED PER ERMD.
--- NOTE | 2021-08-07 03:57 | NUR ---
RT AT BEDSIDE.
--- NOTE | 2021-08-07 03:57 | NUR ---
WHILE CONVULSING PT WAS ABLE TO CALL OUT FOR JASON, AN RN PRESENT WITH PT WELL SAYING "HELP ME WHATS HAPPENING". PT THEN STOPPED CONVULSING. PT IS NOT IN A POSTDICTAL STATE. PT DID NOT URINATE SELF. HR TO 120 THEN CAME BACK TO 85.
--- NOTE | 2021-08-07 04:15 | NUR ---
PT BEGAN CONVULSING AGAIN, RT AT BEDSIDE WELL ANOTHER RN. PT RESPONSIVE TO PAINFUL STIMULI AND ABLE TO TALK. PT REMAINED CONTINET. AFTER PT ASKED FOR ASSISTANCE TO BE PLACED ON BEDPAN.
--- NOTE | 2021-08-07 04:24 | NUR ---
MADE AWARE. WAITING FOR RESPONSE.
--- NOTE | 2021-08-07 04:25 | NUR ---
PT TAKEN OFF BEDPAN. ABOUT 350CC OF CLEAR YELLOW OUTPUT. BED EBONIE CHANGED. LINEN IS DRY. PT MADE COMFORTABLE. ALL NEEDS MET AT THIS TIME. BED LOCKED IN LOWEST POSITION, SIDE RAILS X2 FOR SAFETY.
--- NOTE | 2021-08-07 05:19 | NUR ---
NO NEW ORDERS RECEIVED FROM .
--- NOTE | 2021-08-07 07:17 | NUR ---
Pt report given to AUTUMN VERA. Transfer of care at this time.
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
[2021-08-07 09:05] VITALS: BP 160/76
--- NOTE | 2021-08-07 09:05 | NUR ---
PATIENT LEFT VIA WHEEL CHAIR WITH SON IN LAW KENDRA. PATIENT STATES SHE WANTS TO GO HOME AND TAKE A SHOWER TO GO TO [facility] DENIES ANY PAIN OR WEAKNESS AT THE MOMENT, PATIENT ABLE TO STAND WITH SOME ASSISTANCE. VISUALIZED PATIENT STAND AND TAKE FEW STEPS WHILE ENTERING THE VEHICLE THAT WAS PICKING HER UP.
== END 2021-08-07 08:25 | disposition left against medical advice (07) | DRG 189 ==
LOC: MED 16:57 → MTU 21:31
PROVIDERS: ADMIT Student in an Organized Health Care Education/Training Program; ATTEND Student in an Organized Health Care Education/Training Program
PROC: 5A09357 Assistance with Respiratory Ventilation, Less than 24 Consecutive Hours, Continuous Positive Airway Pressure (ICD-10-PCS; principal; 2021-08-06)
DX: J96.01 Acute respiratory failure with hypoxia (principal); I69.354 Hemiplegia and hemiparesis following cerebral infarction affecting left non-dominant side; R56.9 Unspecified convulsions; I25.10 Atherosclerotic heart disease of native coronary artery without angina pectoris; J44.9 Chronic obstructive pulmonary disease, unspecified; E11.9 Type 2 diabetes mellitus without complications; I10 Essential (primary) hypertension; Z20.822 Contact with and (suspected) exposure to COVID-19
CPT/HCPCS: 36415; 70450; 71045; 80053; 83880; 84484; 85025; 93005; 93971; 99285; Q0092